=== PATIENT | male | born 1990 | race African-American/Black ===

== ENCOUNTER 2021-11-18 16:54 | Emergency (ER) | payer SELFPAY ==
[~2021-11-18] VITALS: Ht 182.9 cm; Wt 77.1 kg
[2021-11-18 17:02] VITALS: BP 119/84
[2021-11-18] MEDS ORDERED: ACETAMINOPHEN ES 500 MG TABLET PO ONE (17:30)
[2021-11-18] MEDS ORDERED: ACETAMINOPHEN ES 500 MG TABLET ONE (17:38)
--- NOTE | 2021-11-18 17:46 | NUR ---
Patient discharged to home in stable condition. Written and verbal after care instructions given. Patient verbalizes understanding of instruction.
== END 2021-11-18 17:47 | disposition home or self-care (01) ==
LOC: ER 16:56
DX: R51.9 Headache, unspecified (principal); R42 Dizziness and giddiness; M54.2 Cervicalgia; M54.9 Dorsalgia, unspecified; J45.909 Unspecified asthma, uncomplicated; Z88.6 Allergy status to analgesic agent; V49.49XA Driver injured in collision with other motor vehicles in traffic accident, initial encounter; Y93.89 Activity, other specified; Y92.413 State road as the place of occurrence of the external cause; Y99.8 Other external cause status

== ENCOUNTER 2023-08-14 15:32 | Emergency (ER) | payer MEDICAID ==
[~2023-08-14] VITALS: Ht 182.9 cm; Wt 88.5 kg
[2023-08-14 15:46] VITALS: BP 161/89; TEMP 98.3
[2023-08-14] MEDS ORDERED: LIDOCAINE 1% INJ 50 ML MDV IJ ONE (17:05)
[2023-08-14] MEDS ORDERED: CEFTRIAXONE 1 G VIAL ONE (17:06)
[2023-08-14] MEDS ORDERED: AZITHROMYCIN 250 MG TABLET ONE (17:06)
[2023-08-14] MEDS ORDERED: ALBU8.5H8 INH (17:15)
[2023-08-14] MEDS: CEFTRIAXONE 1 G VIAL IM ONE (17:15)
[2023-08-14] MEDS: AZITHROMYCIN 250 MG TABLET PO ONE (17:15)
[2023-08-14 17:24] VITALS: O2SAT 98
[2023-08-15 15:05] LABS: HIV-1 p24 ANTIGEN NON REACTIVE (NONREACTIVE); HIV-1/2 ANTIBODY NON REACTIVE (NONREACTIVE)
[2023-08-15 15:09] LABS: HEPATITIS B SURFACE AB Non Reactive (.)
[2023-08-15 21:09] LABS: CHLAMYDIA TRACHOMATIS NAA Negative (Negative); NEISSERIA GONORRHOEAE NAA Negative (Negative)
== END 2023-08-14 17:28 | disposition home or self-care (01) ==
LOC: ER 15:35
DX: J45.909 Unspecified asthma, uncomplicated (principal); Z48.00 Encounter for change or removal of nonsurgical wound dressing; Z20.2 Contact with and (suspected) exposure to infections with a predominantly sexual mode of transmission; Z88.8 Allergy status to other drugs, medicaments and biological substances
CPT/HCPCS: 99283; 96372; 36415; 87806; 86706; 86803; 87340; 87491; 87591; J3490; J0696; A6403